=== PATIENT | female | born 1990 | race Caucasian/White ===

== ENCOUNTER 2018-03-13 09:51 | Emergency (ER) | payer OTHER ==
[~2018-03-13] VITALS: Ht 160 cm; Wt 86.2 kg
[2018-03-13 09:52] VITALS: BP 146/77
[2018-03-13] MEDS ORDERED: PENICILLIN V P500 MG PO (10:06)
[2018-03-13] MEDS ORDERED: TRAMADOL 50 MG50 MG PO (10:06)
== END 2018-03-13 10:45 | disposition home or self-care (01) ==
LOC: ER 09:51
DX: K02.9 Dental caries, unspecified (principal)

== ENCOUNTER 2018-08-07 08:54 | Emergency (ER) | payer OTHER ==
[~2018-08-07] VITALS: Ht 160 cm; Wt 83.0 kg
[~2018-08-07 08:54] MED LIST: PENICILLIN V P500 MG PO; TRAMADOL 50 MG50 MG PO
[2018-08-07 09:10] VITALS: BP 110/71
[2018-08-07] MEDS ORDERED: ERYTHROMYCIN E3.5 G3 OPHTHALMIC (09:13)
== END 2018-08-07 09:30 | disposition home or self-care (01) ==
LOC: ER 08:54
DX: H00.014 Hordeolum externum left upper eyelid (principal)